=== PATIENT | male | born 1975 | race Two or more races ===

== ENCOUNTER 2024-11-10 02:08 | Emergency (ER) | payer MEDICAID ==
[~2024-11-10] VITALS: Ht 170.2 cm; Wt 84.1 kg
[2024-11-10 02:32] VITALS: TEMP 98.4
[2024-11-10 03:44] LABS: BASOPHILS % (AUTO) 0.8 % (0.0-2.0); EOSINOPHILS % (AUTO) 4.5 % (1.0-6.0); HEMATOCRIT 48.6 % (41-53); HEMOGLOBIN 16.2 g/dL (13.5-17.5); LYMPHOCYTES # (AUTO) 2.2 K/uL (1.0-4.8); LYMPHOCYTES % (AUTO) 24.5 % (22.0-44.0); MEAN CORPUSCULAR HEMOGLOBIN 29.4 pg (26.0-34.0); MEAN CORPUSCULAR HGB CONC 33.5 G/dL (31.0-37.0); MEAN CORPUSCULAR VOLUME 88 fL (80-100); MONOCYTES # (AUTO) 0.6 K/uL (0.1-1.0); MONOCYTES % (AUTO) 7.2 % (2.0-9.0); NEUTROPHILS # (AUTO) 5.6 K/uL (1.8-7.7); PLATELET COUNT (AUTO) 299 K/uL (150-450); RED BLOOD CELL COUNT(AUTO) 5.53 MIL/uL (4.50-5.90); RED CELL DISTRIBUTION WIDTH 13.9 % (11.5-14.5); WHITE BLOOD COUNT (AUTO) 8.9 K/uL (4.5-11.0)
[2024-11-10] MEDS: ACETAMINOPHEN 325 MG TABLET PO ONE (03:46)
[2024-11-10] MEDS: METOCLOPRAMIDE HCL 10 MG TABLET PO ONE (03:47)
[2024-11-10] MEDS: IBUPROFEN 400 MG TABLET PO ONE (03:47)
[2024-11-10 03:54] LABS: ANION GAP 6 mmol/L (8-16); CARBON DIOXIDE 30 mmol/L (22-29); CHLORIDE 102 mmol/L (98-107); CREATININE 0.84 mg/dL (0.60-1.30); GLOMERULAR FILTR. RATE CALC > 60 mL/min (>60); GLUCOSE,RANDOM 104 mg/dL (70-110); POTASSIUM 3.5 mmol/L (3.5-5.1); SODIUM SERUM 138 mmol/L (136-145); UREA NITROGEN, BLOOD 14 mg/dL (7-18)
[2024-11-10 03:57] VITALS: BP 134/77; PULSE 93; RESP 18; O2SAT 99
== END 2024-11-10 04:37 | disposition home or self-care (01) ==
LOC: EMS 02:15
DX: R51.9 Headache, unspecified (principal); R20.0 Anesthesia of skin
CPT/HCPCS: 80048; 85025; 99284